=== PATIENT | female | born 1935 | race Caucasian/White ===

== ENCOUNTER → 2017-01-27 | Outpatient (CLI) | payer MEDICARE, BC ==
[~2017-01-27] MED LIST: 8 HOUR650 MG PO; ALLERGY10 MG PO; AMPICILLIN TRI500 MG PO; ANTIVERT12.5 MG PO; ANUSOL-HC30 GM TOP; BUDESONIDE0.25 MG/2 INH; BYETTA5 MCG/0.02 SUB-Q; CHLORDIAZEPO-A1 EACH PO; CULTURELLE1 CAP PO; DAILY MULTIPLE1 EAC1 PO; FIORICET 50-301 EACH PO; FISH OIL1000 MG PO; FLONASE 50 MCG/16 GM INH; FOLIC ACID1 MG PO; IPRAT-ALBUT 0.5-3 ML INH; JENTADUETO 2.51 EACH PO; LASIX40 M1 PO; LEVOTHYROXINE75 MCG PO; LOPRESSOR25 MG PO; MAG-OX-400(241400 MG PO; NITROSTAT0.4 MG SL; OCEAN NASAL) (A44 ML NOSE; PROTONIX40 MG PO; ROBITUSSIN DM120 ML PO; SINGULAIR10 MG PO; SPIRONOLACTONE25 MG PO; TRICOR48 MG PO
[2017-01-27 13:13] LABS: HEMATOCRIT 42.5 % (30.0-46.0); HEMOGLOBIN 13.7 g/dL (10.0-15.0); MCH 30.9 pg (27.0-34.0); MCHC 32.2 gm/dL (32.0-36.5); MCV 95.7 fl (83.0-98.0); PLATELET COUNT 263 K/uL (150-450); RBC 4.44 M/uL (3.00-5.00); WBC 7.9 K/uL (4.0-11.0)
[2017-01-27 13:31] LABS: ALBUMIN 3.7 gm/dL (3.5-5.0); ALK PHOS 49 IU/L (33-138); ALT 28 IU/L (12-78); ANION GAP 13.9 (10.0-19.0); AST 27 IU/L (10-40); BLOOD UREA NITROGEN 26 mg/dL (6-24); CALCIUM 9.1 mg/dL (8.5-10.5); CHLORIDE 104 mMol/L (96-110); CO2 25 mMol/L (22-32); CREATININE 1.1 mg/dL (0.5-1.1); ESTIMATED GFR (MDRD EQUATION) 48; POTASSIUM 3.9 mMol/L (3.7-5.1); SODIUM 139 mMol/L (135-145); TOTAL BILIRUBIN 0.3 mg/dL (0.0-1.5); TOTAL PROTEIN 8.5 g/dL (6.0-8.4)
[2017-01-27 13:59] LABS: ABSOLUTE NEUTROPHIL CT (ANC) 3.8 K/uL (1.8-7.8); BANDED NEUTROPHIL # 0.4 K/uL (0.0-0.1); BANDED NEUTROPHILS % 5 %; LYMPHOCYTE # 3.2 K/uL (0.8-4.0); LYMPHOCYTE % 41 %; MONOCYTE # 0.6 K/uL (0.0-1.0); SEGMENTED NEUTROPHIL # 3.4 K/uL (1.8-7.8); SEGMENTED NEUTROPHIL % 43 %
== END | disposition disaster alternative care site (69) ==
LOC: LELM 12:57
PROVIDERS: Family Medicine
DX: I11.0 Hypertensive heart disease with heart failure (principal); D72.829 Elevated white blood cell count, unspecified; E03.9 Hypothyroidism, unspecified; E78.5 Hyperlipidemia, unspecified

== ENCOUNTER → 2017-02-27 | Outpatient (CLI) | payer MEDICARE, BC | END | disposition disaster alternative care site (69) | LOC: GAMB 04:39 | DX: R06.02 Shortness of breath (principal); Z88.1 Allergy status to other antibiotic agents; Z95.0 Presence of cardiac pacemaker; Z79.899 Other long term (current) drug therapy | CPT/HCPCS: A0425; A0427 ==

== ENCOUNTER 2017-03-23 10:53 | Emergency (ER) | payer MEDICARE, BC ==
--- NOTE | ~2017-03-23 | ER ---
PATIENT'S NAME: ADRI CALI [facility] AGE: 81 Y [address] ROOM: [place] [id number] LOCATION: [facility] ADMIT DATE: 03/23/2017 ER/Outpatient Report DISCHARGE DATE: 03/23/2017 FAMILY PHYSICIAN: Henrry Nolasco MD ATTENDING PHYSICIAN: Mika Patel Time of Patient's Arrival: 1053 hours. Time of Patient's Evaluation: 1145 hours. The patient was not seen in a timely manner due to busy ER. CHIEF COMPLAINT: Labs check and an episode of vomiting. HISTORY OF PRESENT ILLNESS: An 81-year-old female presents to the ER who states that she has a standing a lab order from Dr. Adriana Nolasco that she is supposed to get tomorrow, but would wonder if she could get that done today. She states that she did take her usual medications today and after she did that, she placed some Aspercreme to her hands for her arthritis. She states that she was not for sure if maybe she got it into her mouth or not because she did have one emesis this morning. She states after she threw up, she felt better. She states she has had no recent nausea feelings. No diarrhea. No fever or chills. No chest pain. No shortness of breath. No troubles with urination. She states that she thinks that maybe she could have poison herself with Aspercreme, but she is not for sure. The patient denies any other problems at this time. ALLERGIES: PLEASE SEE MEDICATION LIST NURSE'S NOTES. MEDICATIONS: Please see medication list nurse's notes. PAST MEDICAL HISTORY: She has an ulcer in her throat that she has been seeing Dr. Gomez for, non- insulin-dependent diabetic, CHF, atrial fibrillation, acid reflux, and migraines. She got a defibrillator and a pacemaker and she has had an upper GI scope. SOCIAL HISTORY: She lives at home. Denies any smoking or drinking. REVIEW OF SYSTEMS: A 10-point review of systems completed and was negative with the exception of PATIENT'S NAME: ADRI CALI [facility] AGE: 81 Y [address] ROOM: [place], [place] [id number] LOCATION: [facility] ADMIT DATE: 03/23/2017 ER/Outpatient Report DISCHARGE DATE: 03/23/2017 FAMILY PHYSICIAN: Henrry Nolasco MD ATTENDING PHYSICIAN: Mika Patel those discussed in the HPI. PHYSICAL EXAMINATION: VITAL SIGNS: Height 5 feet 1-1/4 inches stated, weight 61.8 kg taken, blood pressure is 134/81, pulse 75, respirations 18, saturations 94% on room air. [place] Coma Score is 15. GENERAL: Alert, calm, well-developed, 81-year-old, in no acute distress. HEENT. Head: Normocephalic. Eyes: Pupils are equal and reactive to light. She does display moist mucous membranes. LUNGS: Clear to auscultation bilaterally. No wheeze or crackles. Normal respiratory effort. HEART: Regular rate and rhythm. No lifts, thrills, or murmurs. EXTREMITIES: No clubbing or cyanosis. She does have full range of motion of all limbs. ABDOMEN: Soft, it is nontender. She has good bowel sounds throughout. No masses were palpated. LABORATORY DATA: CBC: White count is 8.9, hemoglobin is 13.2, platelets 269, ANC is 5.5, sedimentation rate is 17. CMS: Glucose is 166, otherwise unremarkable. CRP is less than 0.29. ProBNP is 598. IMPRESSION: 1. Laboratory check. 2. Emesis. ASSESSMENT AND PLAN: The patient did rest comfortably here entire stay, while here in the emergency room. We did give copies of all the lab work that Dr. Adriana Nolasco normally scheduled for her to have that she could take that with her to her appointment. She needs to monitor symptoms, do small amounts of blood work, and follow up with Dr. Nolasco tomorrow. The patient understands and agrees with care. LIZA POPE PA-C FOR MD BERNARD MEZA/[place] /[id number] d: t: 03/27/17 1452, OUTPATIENT REPORT
[2017-03-23 12:42] LABS: BASOPHIL % 0.4 %; EOSINOPHIL # 0.3 K/uL (0.0-0.5); HEMATOCRIT 40.1 % (30.0-46.0); HEMOGLOBIN 13.2 g/dL (10.0-15.0); IMMATURE GRANULOCYTE % 0.2 %; LYMPHOCYTE # 2.3 K/uL (0.8-4.0); LYMPHOCYTE % 26.2 %; MCH 31.6 pg (27.0-34.0); MCHC 32.9 gm/dL (32.0-36.5); MCV 95.9 fl (83.0-98.0); MONOCYTE # 0.7 K/uL (0.0-1.0); MONOCYTE % 7.8 %; MPV 8.7 fl (9.4-12.4); NEUTROPHIL # (ANC) 5.5 K/uL (1.8-7.8); NEUTROPHIL % 62.4 %; NRBC % 0 /100WBC (0-0.00); PLATELET COUNT 269 K/uL (150-450); RBC 4.18 M/uL (3.00-5.00); RDW-CV 14.3 % (11.9-14.6); WBC 8.9 K/uL (4.0-11.0)
[2017-03-23 13:02] LABS: ALBUMIN 3.6 gm/dL (3.5-5.0); ALK PHOS 51 IU/L (33-138); ALT 24 IU/L (12-78); ANION GAP 11.9 (10.0-19.0); AST 25 IU/L (10-40); BLOOD UREA NITROGEN 18 mg/dL (6-24); CALCIUM 8.7 mg/dL (8.5-10.5); CHLORIDE 104 mMol/L (96-110); CO2 25 mMol/L (22-32); CREATININE 0.9 mg/dL (0.5-1.1); POTASSIUM 3.9 mMol/L (3.7-5.1); SODIUM 137 mMol/L (135-145); TOTAL BILIRUBIN 0.3 mg/dL (0.0-1.5)
[2017-03-23 13:05] LABS: ESTIMATED GFR (MDRD EQUATION) 60
== END 2017-03-23 13:21 | disposition disaster alternative care site (69) ==
LOC: GMED 10:53
PROVIDERS: Physician Assistant Medical
DX: R11.10 Vomiting, unspecified (principal); E11.9 Type 2 diabetes mellitus without complications; I50.9 Heart failure, unspecified; I48.91 Unspecified atrial fibrillation; K21.9 Gastro-esophageal reflux disease without esophagitis; G43.909 Migraine, unspecified, not intractable, without status migrainosus; Z95.810 Presence of automatic (implantable) cardiac defibrillator; Z98.890 Other specified postprocedural states; Z79.899 Other long term (current) drug therapy

== ENCOUNTER → 2017-06-02 | Outpatient (CLI) | payer MEDICARE, BC ==
[2017-06-02 13:36] LABS: HEMATOCRIT 43.8 % (30.0-46.0); HEMOGLOBIN 14.8 g/dL (10.0-15.0); MCH 32.2 pg (27.0-34.0); MCHC 33.8 gm/dL (32.0-36.5); MCV 95.4 fl (83.0-98.0); MPV 8.7 fl (9.4-12.4); PLATELET COUNT 252 K/uL (150-450); RBC 4.59 M/uL (3.00-5.00); RDW-CV 13.2 % (11.9-14.6); WBC 6.1 K/uL (4.0-11.0)
[2017-06-02 13:58] LABS: ALBUMIN 3.7 gm/dL (3.5-5.0); ALK PHOS 44 IU/L (33-138); ALT 28 IU/L (12-78); ANION GAP 12.1 (10.0-19.0); AST 26 IU/L (10-40); BLOOD UREA NITROGEN 28 mg/dL (6-24); CHLORIDE 107 mMol/L (96-110); CO2 23 mMol/L (22-32); CREATININE 1.1 mg/dL (0.5-1.1); ESTIMATED GFR (MDRD EQUATION) 48; POTASSIUM 4.1 mMol/L (3.7-5.1); SODIUM 138 mMol/L (135-145); TOTAL BILIRUBIN 0.3 mg/dL (0.0-1.5); TOTAL PROTEIN 8.4 g/dL (6.0-8.4)
[2017-06-02 14:01] LABS: ABSOLUTE NEUTROPHIL CT (ANC) 3.4 K/uL (1.8-7.8); BANDED NEUTROPHIL # 0.2 K/uL (0.0-0.1); BANDED NEUTROPHILS % 3 %; LYMPHOCYTE # 2.1 K/uL (0.8-4.0); LYMPHOCYTE % 35 %; MONOCYTE # 0.4 K/uL (0.0-1.0); SEGMENTED NEUTROPHIL # 3.2 K/uL (1.8-7.8); SEGMENTED NEUTROPHIL % 52 %
== END ==
LOC: LELM 13:09
PROVIDERS: Family Medicine
DX: I11.0 Hypertensive heart disease with heart failure (principal); I10 Essential (primary) hypertension; D72.829 Elevated white blood cell count, unspecified; E03.9 Hypothyroidism, unspecified; E78.5 Hyperlipidemia, unspecified; E11.9 Type 2 diabetes mellitus without complications

== ENCOUNTER → 2017-06-10 | Emergency (ER) | payer MEDICARE, BC | END | disposition disaster alternative care site (69) | LOC: GAMB 07:05 | DX: R53.1 Weakness (principal); I50.9 Heart failure, unspecified; Z95.0 Presence of cardiac pacemaker ==